=== PATIENT | female | born 1965 | race Caucasian/White ===

== ENCOUNTER 2016-10-21 00:56 | Day surgery (SDC) | payer OTHER ==
[2016-10-21] MEDS ORDERED: Lidocaine Topical 2% 30 mL Jelly ONE (07:53)
== END 2016-10-21 23:59 | disposition home or self-care (01) ==
LOC: END 00:56
PROVIDERS: ATTEND Internal Medicine Gastroenterology
DX: K21.9 Gastro-esophageal reflux disease without esophagitis (principal); K44.9 Diaphragmatic hernia without obstruction or gangrene